=== PATIENT | male | born 1990 | race Caucasian/White ===

== ENCOUNTER 2017-04-07 00:40 | Emergency (ER) | payer OTHER ==
[~2017-04-07] VITALS: Ht 162.6 cm; Wt 93.0 kg
[2017-04-07 00:46] VITALS: Ht 162.6 cm; Wt 93.0 kg
[2017-04-07] MEDS ORDERED: HYDR-906 PO (04:59)
[2017-04-07] MEDS ORDERED: IBUP-1542 PO (04:59)
--- NOTE | 2017-04-07 05:37 | ERD ---
ER Documentation Chief Complaint Date/Time DATE: 04/07/17 TIME: 05:35 Chief Complaint right knee pain sustained while playing soccer HPI 27-year-old male presents here in emergency department for complaints of right knee pain after twisting it while playing soccer last night. Patient describes the pain as throbbing pain, 6/10 scale, is worse upon movement. Patient did not take any medications of her symptoms. Patient is accompanied with swelling. Patient denies any numbness or tingling. Patient denies any fever or chills. Patient did not take any medications for pain. Was able ambulate on it. ROS All systems reviewed and are negative except as per history of present illness. Medications Home Meds Active Scripts Hydrocodone/Acetaminophen (Corwith 5-325 Tablet) 1 Each Tablet, 1 TAB PO Q6H Y for SEVERE PAIN LEVEL 7-10, #20 TAB Prov:MARLEN CERVANTES CL[employer]ICAL IMPLEMENTATION SPECIALIST 04/07/17 Ibuprofen* (Motrin*) 600 Mg Tab, 600 MG PO Q6H Y for PAIN AND OR ELEVATED TEMP, #30 TAB Prov:MARLEN CERVANTES CLINICAL IMPLEMENTATION SPECIALIST 04/07/17 Allergies Allergies: Coded Allergies: No Known Allergy (Unverified , 04/07/17) PMhx/Soc Medical and Surgical Hx: pt denies Medical Hx, pt denies Surgical Hx Hx Alcohol Use: No Hx Substance Use: No Smoking Status: Never smoker FmHx Family History: No coronary disease, No diabetes, No other Physical Exam Vitals Vital Signs Date Time Temp Pulse Resp B/P Pulse Ox O2 Delivery O2 Flow Rate FiO2 04/07/17 00:46 98.3 85 20 131/75 98 Physical Exam GENERAL: The patient is well developed and appropriate for usual state of health, in no apparent distress. CHEST: Clear to auscultation bilaterally. There are no rales, wheezes or rhonchi. HEART: Regular rate and rhythm. No murmurs, clicks, rubs or gallops. No S3 or S4. ABDOMEN: Soft, nontender and nondistended. Good bowel sounds. No rebound or guarding. No gross peritonitis. No gross organomegaly or masses. No Rodney sign or McBurney point tenderness. BACK: No midline or flank tenderness. EXTREMITIES: Able To do full range of motion of the right knee without any restriction, no deformity noted, negative anterior and posterior drawer test. Equal pulses bilaterally.. Grossly neurovascularly intact. NEURO: Alert and oriented. Cranial nerves 2-12 intact. Motor strength in all 4 extremities with 5/5 strength. Sensation grossly intact. Normal speech and gait. SKIN: There is no apparent rash or petechia. The skin is warm and dry. HEMATOLOGIC AND LYMPHATIC: There is no evidence of excessive bruising or lymphedema. No gross cervical, axillary, or inguinal lymphadenopathy. Procedures/MDM After receiving patients xray report, a knee immobilizer was applied on the patients right knee. After application of the splint, patient has intact sensation and circulation on distal area of the affected joint. Patient does not complain of numbness or tingling after application of the splint. Patient tolerated procedure well. Crutches was given to use afterwards Medical Decision Making: Patient's pain is most likely consistent with a knee sprain. There is no suspicion for neurovascular compromise. Patient has intact sensation and circulation of the affected extremity. There is low suspicion for septic arthritis. Patient does not have any fever. Radiology exams of the affected area does not show any fracture or dislocation. Disposition: Home. Patient is given prescription for ibuprofen for pain, Corwith for severe pain. Patient was advised to elevate the affected area and apply ice on affected area. Patient was advised that if symptoms are worse, numbness, tingling, high fever, unable to move joint, worsening symptoms, to return to emergency department immediately. Otherwise, patient is advised to follow up with the primary care doctor in 5-7 days for reevaluation of symptoms. Departure Diagnosis: Primary Impression: Knee pain Chronicity: acute Laterality: right Qualified Code: M25.561 - Acute pain of right knee Condition: Stable Patient Instructions: Knee Pain, Uncertain Cause, Knee Sprain MARLEN CERVANTES NP Apr 07, 2017 05:37
== END 2017-04-07 05:45 | disposition home or self-care (01) ==
LOC: FTE 00:40
DX: M25.561 Pain in right knee (principal)